=== PATIENT | female | born 1995 | race African-American/Black ===

== ENCOUNTER 2024-03-26 02:47 | Emergency (ER) | payer MEDICAID ==
[~2024-03-26] VITALS: Ht 165.1 cm; Wt 68.0 kg
[2024-03-26 02:54] VITALS: BP 106/57; PULSE 99; RESP 16; TEMP 36.9; O2SAT 100
[2024-03-26] MEDS ORDERED: SILV50CR31 TP (03:35)
[2024-03-26] MEDS ORDERED: ACET-2708 MT (03:35)
[2024-03-26 03:39] VITALS: TEMP 98.5
[2024-03-26] MEDS: ACETAMINOPHEN 325MG TABLET PO ONE (03:39)
[2024-03-26] MEDS: SILVER SULFADIAZINE 1% CREAM 25GM TOP ONE (03:46)
== END 2024-03-26 05:03 | disposition home or self-care (01) ==
LOC: ER 02:47
DX: T24.211A Burn of second degree of right thigh, initial encounter (principal); J45.909 Unspecified asthma, uncomplicated; X58.XXXA Exposure to other specified factors, initial encounter
CPT/HCPCS: 16000; 99283